=== PATIENT | female | born 1990 | race Caucasian/White ===

== ENCOUNTER 2019-09-08 13:37 | Emergency (ER) | payer OTHER, MEDICAID ==
[~2019-09-08] VITALS: Ht 157.5 cm; Wt 68.2 kg
[2019-09-08] MEDS ORDERED: PNV11TAB PO (13:45)
[2019-09-08 14:17] LABS: BASOPHILS % (AUTO) 0.4 % (0.0-2.0); EOSINOPHILS % (AUTO) 0.6 % (1.0-6.0); HEMATOCRIT 35.5 % (36-46); HEMOGLOBIN 11.4 g/dL (12.0-16.0); LYMPHOCYTES # (AUTO) 1.6 K/uL (1.0-4.8); LYMPHOCYTES % (AUTO) 14.8 % (22.0-44.0); MEAN CORPUSCULAR HEMOGLOBIN 24.9 pg (26.0-34.0); MEAN CORPUSCULAR HGB CONC 32.1 G/dL (31.0-37.0); MEAN CORPUSCULAR VOLUME 78 fL (80-100); MONOCYTES # (AUTO) 0.9 K/uL (0.1-1.0); MONOCYTES % (AUTO) 8.3 % (2.0-9.0); NEUTROPHILS # (AUTO) 8.2 K/uL (1.8-7.7); NEUTROPHILS % (AUTO) 75.9 % (40.0-70.0); PLATELET COUNT (AUTO) 235 K/uL (150-450); RED BLOOD CELL COUNT(AUTO) 4.57 MIL/uL (4.00-5.20); RED CELL DISTRIBUTION WIDTH 18.2 % (11.5-14.5)
[2019-09-08 17:05] VITALS: BP 126/86
== END 2019-09-08 17:23 | disposition home or self-care (01) ==
LOC: EMS 13:39
DX: O20.0 Threatened abortion (principal); O99.511 Diseases of the respiratory system complicating pregnancy, first trimester; J45.909 Unspecified asthma, uncomplicated; Z3A.12 12 weeks gestation of pregnancy
CPT/HCPCS: 76801; 76817; 86901

== ENCOUNTER 2022-07-22 13:57 | Emergency (ER) | payer OTHER ==
[~2022-07-22] VITALS: Ht 157.5 cm; Wt 68.2 kg
[~2022-07-22 13:57] MED LIST: PNV11TAB PO
[2022-07-22] MEDS ORDERED: FLUT1BLS8 IH (14:07)
[2022-07-22] MEDS ORDERED: FLUT1BLS9 IH (14:41)
[2022-07-22] MEDS ORDERED: LIDOCAINE 5% TRANSDERMAL PATCH TD ONE (14:45)
[2022-07-22] MEDS ORDERED: KETOROLAC TROMETHAMINE 30 MG/ML VIAL IM ONE (14:45)
[2022-07-22] MEDS ORDERED: HYDR-4723 PO (17:41)
[2022-07-22] MEDS ORDERED: LIDO700A15 TP (17:42)
[2022-07-22] MEDS ORDERED: IBUP-2070 PO (17:43)
[2022-07-22 18:06] VITALS: BP 138/76
== END 2022-07-22 18:32 | disposition home or self-care (01) ==
LOC: EMS 14:05
DX: S32.2XXA Fracture of coccyx, initial encounter for closed fracture (principal); J45.909 Unspecified asthma, uncomplicated; M25.561 Pain in right knee; W10.8XXA Fall (on) (from) other stairs and steps, initial encounter; Y93.F9 Activity, other caregiving; Y92.89 Other specified places as the place of occurrence of the external cause; Y99.8 Other external cause status
CPT/HCPCS: 99284; 72220; 73562; 96372; J1885

== ENCOUNTER → 2024-10-17 | Emergency (ER) | payer OTHER ==
[~2024-10-17] VITALS: Ht 157.5 cm; Wt 68.1 kg
[~2024-10-17] MED LIST changes: +FLUT1BLS19 IH; +GUAIFDM PO; +HYDR-4062 PO; +IBUP-1492 PO; +IBUP-1554 PO; +LIDO700A15 TP; -PNV11TAB PO
[2024-10-17 13:52] VITALS: BP 128/88; PULSE 108; RESP 18; TEMP 98.8; O2SAT 96
[2024-10-17] MEDS: ACETAMINOPHEN 500 MG TABLET PO ONE (14:01)
[2024-10-17] MEDS: IBUPROFEN 200 MG TABLET PO ONE (14:01)
[2024-10-17] MEDS: GuaiFENesin/D-METHORPHAN [SUGAR-FREE] 200-20MG/10 ML SYRUP UDCUP PO ONE (14:01)
[2024-10-17 14:11] LABS: COVID AG,FIA SOURCE NASAL SWAB
[2024-10-17 14:33] LABS: INFLUENZA TYPE A NEGATIVE FOR TYPE A (NEGATIVE); INFLUENZA TYPE B POSITIVE FOR TYPE B (NEGATIVE); SARS-COV2 (COVID) ANTIGEN,FIA Negative (Negative)
== END | disposition still patient (30) ==
LOC: EMS 13:36
DX: J20.9 Acute bronchitis, unspecified (principal); J10.1 Influenza due to other identified influenza virus with other respiratory manifestations; J45.909 Unspecified asthma, uncomplicated; Z79.51 Long term (current) use of inhaled steroids; Z20.822 Contact with and (suspected) exposure to COVID-19
CPT/HCPCS: 87804; 99284; Z7502; Z7610